=== PATIENT | male | born 1960 | race Caucasian/White ===

== ENCOUNTER 2020-03-23 15:27 | Emergency (ER) | payer MEDICAID ==
[~2020-03-23] VITALS: Ht 175.3 cm; Wt 73.0 kg
[2020-03-23 17:26] LABS: CHLORIDE 108 mEq/L (98-107)
[2020-03-23 17:27] LABS: BASOPHILS % 0.8 % (0.0-2.0); EOSINOPHILS % 3.4 % (0.0-5.0); HEMATOCRIT. 39.1 % (42.0-52.0); HEMOGLOBIN. 13.1 g/dL (14.0-18.0); LYMPHOCYTES % 33.1 % (20.0-50.0); MEAN CORPUSCULAR HEMOGLOBIN 30.1 pg (28.0-32.0); MEAN CORPUSCULAR VOLUME 89.9 fL (80.0-94.0); MEAN PLATELET VOLUME 9.1 fl (7.4-10.4); MONOCYTES % 7.7 % (2.0-8.0); PLATELET 245 x1000/uL (130-400); RED BLOOD CELL COUNT 4.35 mill/uL (4.7-6.1)
[2020-03-23 18:25] VITALS: BP 139/85
== END 2020-03-23 18:30 | disposition home or self-care (01) ==
LOC: ER 15:27
DX: T40.5X1A Poisoning by cocaine, accidental (unintentional), initial encounter (principal); R06.89 Other abnormalities of breathing; F15.10 Other stimulant abuse, uncomplicated; F14.129 Cocaine abuse with intoxication, unspecified; Y92.89 Other specified places as the place of occurrence of the external cause; F17.210 Nicotine dependence, cigarettes, uncomplicated
CPT/HCPCS: 36415; 71045; 80053; 84484; 85025; 93005; 99285; Z7610